=== PATIENT | female | born 1995 | race Caucasian/White ===

== ENCOUNTER → 2021-12-27 10:13 | Outpatient (CLI) | payer BC, SELFPAY ==
--- NOTE | ~2021-12-27 | US_ITS ---
EXAMINATION: US OB /maternal detail DATE: 12/27/2021 11:27 INDICATION: anatomic survey. TECHNIQUE: Real-time ultrasound of the pelvis was performed. COMPARISON: None. FINDINGS: There is a single living fetus in variable presentation. The placenta is posterior, 3.0 cm from the cervix. heart rate is 152 beats per minute (bpm). The amniotic fluid volume is subjectively nor mal. The following biometric data were obtained: Biparietal diameter (BPD): 3.9 cm; head circumference (HC): 14.3 cm; abdominal circumference (AC): 11 .8 cm; femur length (FL): 2.3 cm. These measurements are concordant. Estimated weight is 189 g +/- 28 g, which correlates with the 12th percentile when 05/30/22 is us ed as estimated date of delivery. As single measurements, these parameters are each equal to the following estimated gestational ages w ith ranges of +/- 2 standard deviations: BPD: 18 weeks 0 days (16 weeks 6 days - 19 weeks 1 days). HC: 17 weeks 4 days (16 weeks 3 days - 18 weeks 5 days). AC: 17 weeks 4 days (15 weeks 6 days - 19 weeks 1 days). FL: 17 weeks 0 days (15 weeks 4 days - 18 weeks 2 days). estimated gestational age based solely on measurements from this exam is 17 weeks 4 days +/- 1 weeks 2 days. The cerebral ventricles, cerebellum, cisterna magna, nuchal fold, lip, and visualized portions of the spine are normal. The heart is normal. The diaphragm, stomach, kidneys, and bladder are normal. Ther e are two umbilical arteries to yield a 3-vessel cord. The cord insertion is normal. IMPRESSION: 1. Single living fetus in variable presentation. 2. Estimated weight is 189 g +/- 28 g, which correlates with the 12th percentile when 05/30/22 i s used as estimated date of delivery. 3. Normal anatomic survey. Reviewed, dictated and finalized at location A. IMPRESSION: 1. Single living fetus in variable presentation. 2. Estimated weight is 189 g +/- 28 g, which correlates with the 12th pe rcentile when 05/30/22 is used as estimated date of delivery. 3. Normal anatomic survey.
== END ==
PROVIDERS: Visit Provider Obstetrics & Gynecology Gynecologic Oncology
DX: Z36.9 Encounter for antenatal screening, unspecified (principal)
CPT/HCPCS: 76805

== ENCOUNTER 2025-01-02 06:09 | Inpatient (IN) | payer BC, MEDICAID, SELFPAY ==
[2025-01-02] VITALS (119 sets, daily range): BP systolic 83–136; BP diastolic 34–89; PULSE 60–125; RESP 16; TEMP 36.4–36.9; O2SAT 81–100; BMI 27.0
--- OUTSIDE RECORDS SUMMARY | 2025-01-02 06:15 | XMS_ITS | Clinical Summary ---
Author Organization [facility] Address [address] [place] [address] Care Team Providers Care Flotation Operator Name Role Phone Antonella Cowart MD Primary Care Provider [phone] Allergies No known active allergies Medications vitamin 27-1 MG Tab tablet Take 1 tablet by mouth daily. Active cholecalciferol (VITAMIN D-3) 125 MCG (5000 UT) Tab Take 5,000 Units by mouth daily. Active ferrous sulfate EC 325 (65 Fe) MG tablet Take 1 tablet by mouth daily. Active Active Problems Problem Noted Date Diagnosed Date ([facility]) 05/24/2022 Gestational diabetes ([facility]) 05/24/2022 (spontaneous vaginal delivery) ([facility]) Resolved Problems Problem Noted Date Diagnosed Date Resolved Date Encounter for elective induc tion of labor ([facility]) 05/09/2019 05/10/2019 Diet controlled gestational diabetes mellitus (GDM) in third trimester ([facility]) 05/09/201905/10 39 weeks gestation of ([facility]) 05/09/2019 05/10/2019 Family History Medical History Relation Comments Hypertension Father Relation Status Comments Father Alive Mother Alive Sister 1 Alive Sister 2 Alive Sister 3 Alive Sister 4 Alive Son Alive Social History Tobacco Use Types Packs/Day Years Used Date Smoking Tobacco: Never Smokeless Tobacco: Never Alcohol Use Standard Drinks/Week Comments No 0 (1 standard drink = 0.6 oz pur e alcohol) AUDIT-C Answer Date Recorded Frequency of Alcohol Consumption Never 04/26/2019 Average Number of Drinks Not on file 019 Frequency of Binge Drinking Not on file 03/30 Comments No Sex and Gender Information Value Date Recorded Sex Assigned at Not on file Legal Sex Female 5:07 PM CDT Gender Identity Not on file Sexual Orientation Not on file Last Filed Vital Signs Vital Sign Reading Time Taken Comments Blood Pressure 112/68 05/26/2022 8:00 AM CDT Pulse 79 05/26/2022 8:00 AM CDT Temperature 36.7 C (98.1 F) 05/26/2022 8:00 AM CDT Respiratory Rate 16 05/26/2022 8:00 AM CDT Oxygen Saturation 98% 05/26/2022 8:00 AM CDT Inhaled Oxygen Concentration - - Weight 70.3 kg (155 lb) 05/13/2022 1:00 PM CDT Height 162.6 cm (5' 4 ) 05/13/2022 1:00 PM CDT Body Mass Index 26.61 05/13/2022 1:00 PM CDT Plan of Treatment Health Maintenance Due Date Last Done Comments Cervical Cancer Screening Pa p Smear (Age 30 to 64) Every 3 Years 1993 Annual Physical 1996 DTaP, Tdap and Td Vaccines ( 1 - Tdap) 2012 Hepatitis B Vaccines (1 of 3 - 19+ 3-dose series) 2012 Cervical Cancer Screening Pa p with HPV Testing (Age 30 to 64) Every 5 Years 2023 Cervical Cancer Screening wi th HPV 2023 COVID-19 Vaccine (3 - 2023-2 5 season) 2024 06/21/2021, 05/24/2021 Hepatitis C Completed 11/08/2021 HPV Vaccines Aged Out No longer eligi ble based on patient's age to complete this topic Meningococcal B Vaccine Aged Out No l onger eligible based on patient's age to complete this topic Meningococcal Vaccine Aged Out No suzy magno eligible based on patient's age to complete this topic Pneumococcal Vaccine: Pediatrics (0 to 5 Years) and At-Risk Patients (6 to 64 Years) Aged Out No longer eligible b ased on patient's age to complete this topic RSV Immunizations Under 20 Months Aged Out No longer eligible b ased on patient's age to complete this topic Procedures Procedure Name Priority Date/Time Associated Diagnosis Comments HEPATITIS C ANTIBODY Routine 11/08/2021 11:39 AM [employer] SAL[employer] ASSISTANT Unspecified screening (HHS/HCC) from Last 3 Months or Most Recently Relevant to Health Maintenance Results * HEPATITIS C ANTIBODY (11/08/2021 11:39 AM [employer] SAL[employer] ASSISTANT) HEPATITIS C AB NON-REACTI VE NON-REACTI VE 11/08/2021 8:10 PM [employer]OTHING SALES ASSISTANT [facility] 11/08/2021 11:3 9 AM [employer]OTH[employer] SALES ASSISTANT [facility] Final Result [facility] [address] [place] [address], from Last 3 Months or Most Recently Relevant to Health Maintenance Insurance [employer] * Full Code (Latest Code Status on File) Date Activated Date Inactivated Comments 05/24/2022 10:36 AM 05/26/2022 5:18 PM * Full Code Date Activated Date Inactivated Comments 05/13/2022 8:18 AM 05/13/2022 1:31 PM * Full Code Date Activated Date Inactivated Comments 05/02/2022 10:27 AM 05/02/2022 5:29 PM * Full Code Date Activated Date Inactivated Comments 05/09/2019 12:09 PM 05/09/2019 9:27 PM Care Teams Flotation Operator Relationship Specialty Start Date End Date Antonella Cowart MD PCP - General OBGYN 04/26/19
--- OUTSIDE RECORDS SUMMARY | 2025-01-02 06:15 | XMS_ITS | Data Portability ---
Author Organization [facility] Address [address] [place] [address] [place] [address] Assessment Encounter Date Assessment Date Assessment LastModified by Organization Details LastModified Time 12/12/2024 12/12/2024 Patient is ___weeks . Discussed plan. Not available 12/12/2024 11:19:12 12/26/2024 12/26/2024 Patient is ___weeks . Discussed plan. [email or web address] Not available 12/26/2024 11:43:37 Plan of Treatment Reminders Order Date Submit Date Provider Last Modified By Organization Details Last Modified Time Details Appointments INDUCTI ON 2024 06:30A Mick CASTILLO MD Not available Not available Not available NST 2024 09:30A M NST SCHEDULE Not available Not available Not available U/S OB BPP 2024 10:00A M ULTRASOUND Not available Not available Not available OB ROUTINE 2024 10:30A Mick CASTILLO MD Not available Not available Not available NST 2024 11:00A M NST SCHEDULE Not available Not available Not available U/S OB BPP 2024 11:30A M ULTRASOUND Not available Not available Not available OB ROUTINE 2024 11:45A Mick CASTILLO MD Not available Not available Not available Lab None recorde d. Referral None recorde d. Procedures None recorde d. Surgeries None recorde d. Imaging non-str ess test 2024 025 [email or web address], [address], [place], [address], 12/30/2024 14:11:19 US, obstetr ic, follow- up 2024 025 [address], [address], [place], [address], 12/26/2024 18:12:26 US, obstetr ic, biophys ical profile + non-str ess test 2024 025 [address], [address], [place], [address], 12/26/2024 18:12:26 non-str ess test 2024 025 [email or web address] [address], [address], [place], [address], 12/27/2024 09:04:13 Medication Orders None recorde d. Patient TargetsNo targets recorded. Patient InstructionsNo instructions recorded. Reason for Referral None Reported. Results Created Date Observation Date Name Description Value Unit Range Abnormal Flag Note LastModifiedBy Organization Detail LastModifiedTime 11/14/1911/14/2024 CMP(C OMPRE HENSI VE METAB OLIC PANEL ) sodium 136 mmol/ L 133-14 6 Not Available [facility] (Lab) [address] [place], [address], 11/15/2024 19:07:52 11/14/1911/14/2024 CMP(C OMPRE HENSI VE METAB OLIC PANEL ) potassium 3.5 mmol/ L 3.5-5. 1 Not Available [facility] (Lab) [address] [place], [address], 11/15/2024 19:07:52 11/14/1911/14/2024 CMP(C OMPRE HENSI VE METAB OLIC PANEL ) chloride 105 mmol/ L 98-107 Not Available [facility] (Lab) [address], [place], [address], 11/15/2024 19:07:52 11/14/19 25 11/14/2024 CMP(C OMPRE HENSI VE METAB OLIC PANEL ) carbon dioxide 23 mmol/ L 21-31 Not Available [facility] (Lab) [address] [facility], [place], [address], 11/15/2024 19:07:52 11/14/19 25 11/14/2024 CMP(C OMPRE HENSI VE METAB OLIC PANEL ) anion gap 8 mmol/ L 4-13 Not Available [facility] (Lab) [address] [facility], [place], [address], 11/15/2024 19:07:52 11/14/19 25 11/14/2024 CMP(C OMPRE HENSI VE METAB OLIC PANEL ) blood urea nitrogen 16 mg/dL 7-25 Not Available [facility] (Lab) [address] [facility], [place], [address], 11/15/2024 19:07:52 11/14/19 25 11/14/2024 CMP(C OMPRE HENSI VE METAB OLIC PANEL ) creatinine 0.51 mg/dL 0.60-1 .30 low Not Available [facility] (Lab) [address] [facility], [place], [address], 11/15/2024 19:07:52 11/14/1911/14/2024 CMP(C OMPRE HENSI VE METAB OLIC PANEL ) egfrcr (CKD-epi 2020) >90 mL/mi n/1.7 3_m2 >=60 Not Available [facility] (Lab) [address] [facility], [place], [address], 11/15/2024 19:07:52 11/14/19 25 11/14/2024 CMP(C OMPRE HENSI VE METAB OLIC PANEL ) calcium 8.4 mg/dL 8.3-10 .5 Not Available [facility] (Lab) [address] [facility], [place], [address], 11/15/2024 19:07:52 11/14/19 25 11/14/2024 CMP(C OMPRE HENSI VE METAB OLIC PANEL ) glucose 113 mg/dL 70-100 high Not Available [facility] (Lab) [address] [facility], [place], [address], 11/15/2024 19:07:52 11/14/19 25 11/14/2024 CMP(C OMPRE HENSI VE METAB OLIC PANEL ) protein, total 5.4 g/dL 6.4-8. 3 low Not Available [facility] (Lab) [address] [facility], [place], [address], 11/15/2024 19:07:52 11/14/19 25 11/14/2024 CMP(C OMPRE HENSI VE METAB OLIC PANEL ) albumin 3.4 g/dL 3.5-5. 0 low Not Available [facility] (Lab) [address] [facility], [place], [address], 11/15/2024 19:07:52 11/14/19 25 11/14/2024 CMP(C OMPRE HENSI VE METAB OLIC PANEL ) ALT 14 units /L 9-43 Not Available [facility] (Lab) [address] [facility], [place], [address], 11/15/2024 19:07:52 11/14/19 25 11/14/2024 CMP(C OMPRE HENSI VE METAB OLIC PANEL ) alkaline phosphatase 72 units /L 34-104 Not Available [facility] (Lab) [address] [facility], [place], [address], 11/15/2024 19:07:52 11/14/19 25 11/14/2024 CMP(C OMPRE HENSI VE METAB OLIC PANEL ) AST 18 units /L 13-39 Not Available [facility] (Lab) [address] [facility], [place], [address], 11/15/2024 19:07:52 11/14/19 25 11/14/2024 CMP(C OMPRE HENSI VE METAB OLIC PANEL ) bilirubin, total 0.4 mg/dL 0.2-1. 2 Not Available [facility] (Lab) [address] [facility], [place], [address], 11/15/2024 19:07:52 11/14/19 25 11/14/2024 BILE ACIDS , TOTAL bile acids, total 8 umol/ L 0-10 Test Perfo rmed by: [facility] [address] [address] Not Available [facility] (Lab) [address] [facility], [place], [address], 11/15/2024 19:07:52 11/29/19 25 11/28/2024 CMP(C OMPRE HENSI VE METAB OLIC PANEL ) sodium 137 mmol/ L 133-14 6 Not Available [facility] (Lab) [address] [place], [address], 11/29/2024 12:53:06 11/29/19 25 11/28/2024 CMP(C OMPRE HENSI VE METAB OLIC PANEL ) potassium 3.2 mmol/ L 3.5-5. 1 low Not Available [facility] (Lab) [address] [place], [address], 11/29/2024 12:53:06 11/29/19 25 11/28/2024 CMP(C OMPRE HENSI VE METAB OLIC PANEL ) chloride 103 mmol/ L 98-107 Not Available [facility] (Lab) [address] [place], [address], 11/29/2024 12:53:06 11/29/19 25 11/28/2024 CMP(C OMPRE HENSI VE METAB OLIC PANEL ) carbon dioxide 24 mmol/ L 21-31 Not Available [facility] (Lab) [address] [place], [address], 11/29/2024 12:53:06 11/29/19 25 11/28/2024 CMP(C OMPRE HENSI VE METAB OLIC PANEL ) anion gap 10 mmol/ L 4-13 Not Available [facility] (Lab) [address] [facility], [place], [address], 11/29/2024 12:53:06 11/29/19 25 11/28/2024 CMP(C OMPRE HENSI VE METAB OLIC PANEL ) blood urea nitrogen 8 mg/dL 7-25 Not Available [facility] (Lab) [address] [facility], [place], [address], 11/29/2024 12:53:06 11/29/19 25 11/28/2024 CMP(C OMPRE HENSI VE METAB OLIC PANEL ) creatinine 0.50 mg/dL 0.60-1 .30 low Not Available [facility] (Lab) [address] [facility], [place], [address], 11/29/2024 12:53:06 11/29/19 25 11/28/2024 CMP(C OMPRE HENSI VE METAB OLIC PANEL ) egfrcr (CKD-epi 2020) >90 mL/mi n/1.7 3_m2 >=60 Not Available [facility] (Lab) [address] [facility], [place], [address], 11/29/2024 12:53:06 11/29/19 25 11/28/2024 CMP(C OMPRE HENSI VE METAB OLIC PANEL ) calcium 7.9 mg/dL 8.3-10 .5 low Not Available [facility] (Lab) [address] [facility], [place], [address], 11/29/2024 12:53:06 11/29/19 25 11/28/2024 CMP(C OMPRE HENSI VE METAB OLIC PANEL ) glucose 110 mg/dL 70-100 high Not Available [facility] (Lab) [address] [facility], [place], [address], 11/29/2024 12:53:06 11/29/19 25 11/28/2024 CMP(C OMPRE HENSI VE METAB OLIC PANEL ) protein, total 5.8 g/dL 6.4-8. 3 low Not Available [facility] (Lab) [address] [facility], [place], [address], 11/29/2024 12:53:06 11/29/19 25 11/28/2024 CMP(C OMPRE HENSI VE METAB OLIC PANEL ) albumin 3.6 g/dL 3.5-5. 0 Not Available [facility] (Lab) [address] [facility], [place], [address], 11/29/2024 12:53:06 11/29/19 25 11/28/2024 CMP(C OMPRE HENSI VE METAB OLIC PANEL ) ALT 26 units /L 9-43 Not Available [facility] (Lab) [address] [facility], [place], [address], 11/29/2024 12:53:06 11/29/19 25 11/28/2024 CMP(C OMPRE HENSI VE METAB OLIC PANEL ) alkaline phosphatase 97 units /L 34-104 Not Available [facility] (Lab) [address] [facility], [place], [address], 11/29/2024 12:53:06 11/29/19 25 11/28/2024 CMP(C OMPRE HENSI VE METAB OLIC PANEL ) AST 31 units /L 13-39 Not Available [facility] (Lab) [address] [place], [address], 11/29/2024 12:53:06 11/29/19 25 11/28/2024 CMP(C OMPRE HENSI VE METAB OLIC PANEL ) bilirubin, total 0.4 mg/dL 0.2-1. 2 Not Available [facility] (Lab) [address] [place], [address], 11/29/2024 12:53:06 11/29/19 25 11/28/2024 BILE ACIDS , TOTAL bile acids, total 7 umol/ L 0-10 Test Perfo rmed by: [facility] [address] [address] Not Available [facility] (Lab) [address] [facility], [place], [address], 11/29/2024 12:53:07 12/13/19 25 12/12/2024 CMP(C OMPRE HENSI VE METAB OLIC PANEL ) sodium 135 mmol/ L 133-14 6 Not Available [facility] (Lab) [address] [facility], [place], [address], 12/13/2024 10:57:47 12/13/19 25 12/12/2024 CMP(C OMPRE HENSI VE METAB OLIC PANEL ) potassium 3.6 mmol/ L 3.5-5. 1 Not Available [facility] (Lab) [address] [facility], [place], [address], 12/13/2024 10:57:47 12/13/19 25 12/12/2024 CMP(C OMPRE HENSI VE METAB OLIC PANEL ) chloride 102 mmol/ L 98-107 Not Available [facility] (Lab) [address] [facility], [place], [address], 12/13/2024 10:57:47 12/13/19 25 12/12/2024 CMP(C OMPRE HENSI VE METAB OLIC PANEL ) carbon dioxide 24 mmol/ L 21-31 Not Available [facility] (Lab) [address] [place], [address], 12/13/2024 10:57:47 12/13/19 25 12/12/2024 CMP(C OMPRE HENSI VE METAB OLIC PANEL ) anion gap 9 mmol/ L 4-13 Not Available [facility] (Lab) [address] [facility], [place], [address], 12/13/2024 10:57:47 12/13/19 25 12/12/2024 CMP(C OMPRE HENSI VE METAB OLIC PANEL ) blood urea nitrogen 10 mg/dL 7-25 Not Available [facility] (Lab) [address], [place], [address], 12/13/2024 10:57:47 12/13/19 25 12/12/2024 CMP(C OMPRE HENSI VE METAB OLIC PANEL ) creatinine 0.46 mg/dL 0.60-1 .30 low Not Available [facility] (Lab) [address] [facility], [place], [address], 12/13/2024 10:57:47 12/13/19 25 12/12/2024 CMP(C OMPRE HENSI VE METAB OLIC PANEL ) egfrcr (CKD-epi 2020) >90 mL/mi n/1.7 3_m2 >=60 Not Available [facility] (Lab) [address] [facility], [place], [address], 12/13/2024 10:57:47 12/13/19 25 12/12/2024 CMP(C OMPRE HENSI VE METAB OLIC PANEL ) calcium 8.5 mg/dL 8.3-10 .5 Not Available [facility] (Lab) [address] [facility], [place], [address], 12/13/2024 10:57:47 12/13/19 25 12/12/2024 CMP(C OMPRE HENSI VE METAB OLIC PANEL ) glucose 104 mg/dL 70-100 high Not Available [facility] (Lab) [address] [facility], [place], [address], 12/13/2024 10:57:47 12/13/19 25 12/12/2024 CMP(C OMPRE HENSI VE METAB OLIC PANEL ) protein, total 5.8 g/dL 6.4-8. 3 low Not Available [facility] (Lab) [address] [facility], [place], [address], 12/13/2024 10:57:47 12/13/19 25 12/12/2024 CMP(C OMPRE HENSI VE METAB OLIC PANEL ) albumin 3.6 g/dL 3.5-5. 0 Not Available [facility] (Lab) [address] [facility], [place], [address], 12/13/2024 10:57:47 12/13/19 25 12/12/2024 CMP(C OMPRE HENSI VE METAB OLIC PANEL ) ALT 30 units /L 9-43 Not Available [facility] (Lab) [address] [facility], [place], [address], 12/13/2024 10:57:47 12/13/19 25 12/12/2024 CMP(C OMPRE HENSI VE METAB OLIC PANEL ) alkaline phosphatase 105 units /L 34-104 high Not Available [facility] (Lab) [address] [facility], [place], [address], 12/13/2024 10:57:47 12/13/19 25 12/12/2024 CMP(C OMPRE HENSI VE METAB OLIC PANEL ) AST 28 units /L 13-39 Not Available [facility] (Lab) [address] [facility], [place], [address], 12/13/2024 10:57:47 12/13/19 25 12/12/2024 CMP(C OMPRE HENSI VE METAB OLIC PANEL ) bilirubin, total 0.5 mg/dL 0.2-1. 2 Not Available [facility] (Lab) [address] [facility], [place], [address], 12/13/2024 10:57:47 12/13/19 25 12/12/2024 BILE ACIDS , TOTAL bile acids, total 8 umol/ L 0-10 Test Perfo rmed by: [facility] [address] [address] Not Available [facility] (Lab) [address] [facility], [place], [address], 12/13/2024 10:57:48 12/27/19 25 12/26/2024 CMP(C OMPRE HENSI VE METAB OLIC PANEL ) sodium 136 mmol/ L 133-14 6 Not Available [facility] (Lab) [address] [facility], [place], [address], 12/27/2024 10:30:27 12/27/19 25 12/26/2024 CMP(C OMPRE HENSI VE METAB OLIC PANEL ) potassium 3.7 mmol/ L 3.5-5. 1 Not Available [facility] (Lab) [address] [facility], [place], [address], 12/27/2024 10:30:27 12/27/19 25 12/26/2024 CMP(C OMPRE HENSI VE METAB OLIC PANEL ) chloride 102 mmol/ L 98-107 Not Available [facility] (Lab) [address] [facility], [place], [address], 12/27/2024 10:30:27 12/27/19 25 12/26/2024 CMP(C OMPRE HENSI VE METAB OLIC PANEL ) carbon dioxide 25 mmol/ L 21-31 Not Available [facility] (Lab) [address] [facility], [place], [address], 12/27/2024 10:30:27 12/27/19 25 12/26/2024 CMP(C OMPRE HENSI VE METAB OLIC PANEL ) anion gap 9 mmol/ L 4-13 Not Available [facility] (Lab) [address] [facility], [place], [address], 12/27/2024 10:30:27 12/27/19 25 12/26/2024 CMP(C OMPRE HENSI VE METAB OLIC PANEL ) blood urea nitrogen 11 mg/dL 7-25 Not Available [facility] (Lab) [address] [facility], [place], [address], 12/27/2024 10:30:27 12/27/19 25 12/26/2024 CMP(C OMPRE HENSI VE METAB OLIC PANEL ) creatinine 0.45 mg/dL 0.60-1 .30 low Not Available [facility] (Lab) [address] [place], [address], 12/27/2024 10:30:27 12/27/19 25 12/26/2024 CMP(C OMPRE HENSI VE METAB OLIC PANEL ) egfrcr (CKD-epi 2020) >90 mL/mi n/1.7 3_m2 >=60 Not Available [facility] (Lab) [address], [place], [address], 12/27/2024 10:30:27 12/27/19 25 12/26/2024 CMP(C OMPRE HENSI VE METAB OLIC PANEL ) calcium 8.6 mg/dL 8.3-10 .5 Not Available [facility] (Lab) [address], [place], [address], 12/27/2024 10:30:27 12/27/19 25 12/26/2024 CMP(C OMPRE HENSI VE METAB OLIC PANEL ) glucose 102 mg/dL 70-100 high Not Available [facility] (Lab) [address], [place], [address], 12/27/2024 10:30:27 12/27/19 25 12/26/2024 CMP(C OMPRE HENSI VE METAB OLIC PANEL ) protein, total 5.8 g/dL 6.4-8. 3 low Not Available [facility] (Lab) [address], [place], [address], 12/27/2024 10:30:27 12/27/19 25 12/26/2024 CMP(C OMPRE HENSI VE METAB OLIC PANEL ) albumin 3.5 g/dL 3.5-5. 0 Not Available [facility] (Lab) [address], [place], [address], 12/27/2024 10:30:27 12/27/19 25 12/26/2024 CMP(C OMPRE HENSI VE METAB OLIC PANEL ) ALT 23 units /L 9-43 Not Available [facility] (Lab) [address], [place], [address], 12/27/2024 10:30:27 12/27/19 25 12/26/2024 CMP(C OMPRE HENSI VE METAB OLIC PANEL ) alkaline phosphatase 119 units /L 34-104 high Not Available [facility] (Lab) [address] [facility], [place], [address], 12/27/2024 10:30:27 12/27/19 25 12/26/2024 CMP(C OMPRE HENSI VE METAB OLIC PANEL ) AST 29 units /L 13-39 Not Available [facility] (Lab) [address] [facility], [place], [address], 12/27/2024 10:30:27 12/27/19 25 12/26/2024 CMP(C OMPRE HENSI VE METAB OLIC PANEL ) bilirubin, total 0.5 mg/dL 0.2-1. 2 Not Available [facility] (Lab) [address] [facility], [place], [address], 12/27/2024 10:30:27 12/27/19 25 12/26/2024 BILE ACIDS , TOTAL bile acids, total 10 umol/ L 0-10 Test Perfo rmed by: [facility] [address] [address] Not Available [facility] (Lab) [address] [facility], [place], [address], 12/27/2024 10:30:28 12/27/19 25 12/26/2024 CULTU RE: GROUP B STREP SCREE N, REFLE X SUSCE PTIBI LITY result report SEE RESULT S BELOW Test: Cultu re: Group B Strep , Refle x Susce ptibi lity ([facility] ) Speci men Sourc e: Vagin a/Rec macey Speci men Type: Vagin al/Re ctal Speci men Date: 2024 1140 Resul t Date: 025 1253 Resul t Statu s: Final resul t Abnor mal: No Resul ting Lab: [facility] [address] [facility] [address] Tel: CULTU RE ----- ----- ----- --- No Group B strep isola eli at 2 days (eric ctive broth enhan cemen t) Not Available [facility] (Lab) [address] [facility], [place], [address], 12/29/2024 13:56:54 11/29/19 25 11/28/2024 US, obste tric, follo w-up No observ ation record ed. [email or web address], [place], [address], 11/28/2024 17:20:45 11/29/19 25 11/28/2024 US, obste tric, follo w-up No observ ation record ed. [email or web address] [address] [facility], [place], [address], 11/28/2024 21:56:46 12/23/19 25 12/22/2024 US, obste tric, 2nd or 3rd trime ster No observ ation record ed. [email or web address] [address], [place], [address], 12/24/2024 22:47:50 12/27/19 25 12/26/2024 US, obste tric, follo w-up No observ ation record ed. [email or web address] [address], [place], [address], 12/26/2024 15:58:43 12/27/19 25 12/26/2024 US, sharmin ken, bioph ysica l profi le + non-s tress test No observ ation record ed. [email or web address] [address], [place], [address], 12/26/2024 15:58:54 12/27/19 25 12/26/2024 US, obste tric, follo w-up No observ ation record ed. [address], [place], [address], 12/29/2024 17:32:13 12/27/19 25 12/26/2024 non-s tress test No observ ation record ed. [email or web address] [address], [place], [address], 12/26/2024 15:41:46 12/30/19 25 12/26/2024 non-s tress test No observ ation record ed. [email or web address] [address], [place], [address], 12/29/2024 10:23:11 12/31/19 25 12/30/2024 non-s tress test No observ ation record ed. [email or web address] [address], [place], [address], 12/30/2024 14:06:33 Result Notes None recorded. 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 4 12:49:11 Past history of gestation al diabetes mellitus 937997144 Active [address] [facility] 4 12:49:33 57039455 Active 2023 Brissa Dugan null, [facility] 4 11:08:32 Maternal history of gestation al diabetes 985301257 Active Nahun Castillo MD [address], [place], [address], [place] [facility] 4 11:28:36 Placenta circumval eben 0911119 Active 32wk growth us Junie bangura, [facility] 4 18:22:42 Blood glucose outside reference range 684415571 Active decline 3hr gtt h/o GDM checking bs Junie Lau [facility], [facility] 5 11:35:10 Blood glucose outside reference range 830383278 Active decline 3hr gtt h/o GDM checking Junie Lau [facility], [facility] 5 11:35:10 Cholestas is of 836172424 Active 2024 ursodiol 300mg BID, testing , 37wk delivery Junie bangura [facility] 5 16:17:53 Cholestas is of 678545400 Active 2024 ursodiol 300mg BID, testing , 37wk delivery Junie bangura [facility] 5 16:17:53 Notes:Encounter for antenata l screening of mother Recorded Elsewhere: No Location: [facility] Source: EHR Chronic: N Practice ID: [id number] Billable Time: 03:45:00 PM Encounter for screening of mother Practice ID: [id number] Problem Notes None recorded. Procedures Surgical History Date Name Laterality Status Provider Name and Address Organization Details Recorded Time 4 Date of Last Pap Smear completed Aydee Levi [facility] 06/13/2024 12:53:01 7 Colposcopy completed Aydee Levi [facility] 06/13/2024 12:53:38 7 Colposcopy completed Aydee Levi [facility] 06/13/2024 13:03:47 9 extraction of wisdom tooth completed Aydee Levi [facility] 06/13/2024 13:04:13 Imaging Results Imaging Date Name Status LastModified by Organiz ation Details LastModified Time 11/28/2024 US, obstetric, follow-up [email or web address] [address], [place], [address], 11/28/2024 17:20:45 11/28/2024 US, obstetric, follow-up completed [email or web address] [address], [place], [address], 11/28/2024 21:56:46 12/22/2024 US, obstetric, 2nd or 3rd trimester completed [email or web address] [address], [place], [address], 12/24/2024 22:47:50 12/26/2024 US, obstetric, follow-up completed [email or web address] [address], [place], [address], 12/26/2024 15:58:43 12/26/2024 US, obstetric, biophysical profile + non-stress test completed [email or web address] [address] [address], [place], [address], 12/26/2024 15:58:54 12/26/2024 US, obstetric, follow-up completed [email or web address] [address], [place], [address], 12/29/2024 17:32:13 12/26/2024 non-stress test completed [email or web address] [place] [address], [place], [address], 12/26/2024 15:41:46 12/26/2024 non-stress test completed [email or web address] [place] [address], [place], [address], 12/29/2024 10:23:11 12/30/2024 non-stress test completed [place] [address], [place], [address], 12/30/2024 14:06:33 Procedure Notes None recorded. Medical Equipment None Reported. Allergies No known drug allergies Medications Name Sig Start Date Stop Date Status Note LastModified by Organization Details LastModified Time ursodiol 300 mg capsule TAKE 1 CAPSULE BY MOUTH TWICE A DAY active Not Available Not Available No t Available Vitamin D2 1,250 mcg (50,000 unit) capsule take 1 capsule by oral route every week 04/18 completed Prescrib ed Elsewher e: No Locat ion: Alanna sainz [facility] odify By: omaira Encounte r DateTime : 11/08/19 16 02:42:36 PM Not Available Not Available Not Available magnesium 30 mg tablet 06/12 completed Prescrib ed Elsewher e: Yes Loca tion: Alanna sainz [facility] odify By: omaira Snowte r DateTime : 09/25/20 15 03:45:00 PM Not Available Not Available Not Available active Not Available Not Avai lable Not Available Heladio-Dirk uo DHA 29 mg-1 mg-400 mg oral pack take 2 by Oral route once for 30 days 10/24 completed Prescrib ed Elsewher e: No Locat ion: Alanna sainz [facility] odify By: megha mills DateTime : 09/25/20 15 03:45:00 PM Not Available Not Available Not Available Vitamin B-12 1,000 mcg/mL oral drops 06/12 completed Prescrib ed Elsewher e: Yes Loca tion: Alanna sainz [facility] odify By: omaira Encounte r DateTime : 09/25/20 15 03:45:00 PM Not Available Not Available Not Available Fioricet 50 mg-300 mg-40 mg capsule Take 1 capsule every 4 hours by oral route. 12/26 completed Not Available Not Available Not Available Vitals Date Recorded Body weight Systolic blood pressure Diastolic blood pressure Provider Name and Address Organization Details Last Updated DateTime 12/12/2024 66780.0402 4 g 128 mm[Hg] 79 mm[Hg] Brissa Ritchie [facility] 12/12/2024 11:19:57 Date Recorded Body height Body mass index (BMI) Body weight Body height Body mass index (BMI) Body weight Systolic blood pressure Diastolic blood pressure Systolic blood pressure Diastolic blood pressure Provider Name and Address Organization Details Last Updated DateTime 165.1 cm 26.1 kg/m2 22298 g 165.1 cm 26.1 kg/m2 12284 g 117 mm[Hg] 69 mm[Hg] 117 mm[Hg] 69 mm[Hg] Aydee Levi [facility] 15:40:18 Date Recorded Body height Body mass index (BMI) Body weight Systolic blood pressure Diastolic blood pressure Provider Name and Address Organization Details Last Updated DateTime 12/30/2024 165.1 cm 26.2 kg/m2 12469.72 g 114 mm[Hg] 67 mm[Hg] JC Davila [facility] 13:04:20 Social History Question Answer Notes LastModified by Organizat ion Details LastModified Time Tobacco Smoking Status Former Smoker Aydee Levi [facility], [facility] 06/13/2024 13:02:46 What Is Your Level Of Alcohol Consumption? None [email or web address] Information not available 06/13/2024 If You Are , What Was Your Level Of Alcohol Consumption Prior To ? Occasional [email or web address] Information not available 06/13/2024 Are You Blind Or Do You Have Difficulty Seeing? No [email or web address] Information not available 06/13/2024 What Is Your Level Of Caffeine Consumption? Moderate [email or web address] Information not available 06/13/2024 How Much Tobacco Do You Chew? None Information not available 08/08/2024 In The 14 Days Before Symptom Onset, Have You Had Close Contact With A Laboratory-confir med COVID-19 While That Case Was Ill? No [email or web address] Information not available 06/13/2024 In The 14 Days Before Symptom Onset, Have You Had Close Contact With A Person Who Is Under Investigation For COVID-19 While That Person Was Ill? No [email or web address] Information not available 06/13/2024 Have You Been To An Area Known To Be High Risk For COVID-19? No [email or web address] Information not available 06/13/2024 Are You Deaf Or Do You Have Serious Difficulty Hearing? No [email or web address] Information not available 06/13/2024 What Is The Highest Grade Or Level Of School You Have Completed Or The Highest Degree You Have Received? [id number] Information not available 08/08/2024 Do You Use Your Seat Belt Or Car Seat Routinely? Yes Information not available 06/13/2024 Do You Have Smoke And Carbon Monoxide Detectors In Your Home? Yes [email or web address] Information not available 06/13/2024 How Much Tobacco Do You Smoke? No Information not available 08/08/2024 Do You Feel Stressed (tense, Restless, Nervous, Or Anxious, Or Unable To Sleep At Night)? [id number] [email or web address] Information not available 06/13/2024 Do You Use Any Illicit Or Recreational Drugs? No [email or web address] Information not available 06/13/2024 Do You Use Sunscreen Routinely? Yes [email or web address] Information not available 06/13/2024 Has Tobacco Cessation Counseling Been Provided? No Information not available 06/13/2024 Have You Used IV Drugs? No Information not available 08/08/2024 Do You Or Have You Ever Used Any Other Forms Of Tobacco Or Nicotine? No [email or web address] Information not available 06/13/2024 Sex: Unknown Functional Status Question Answer Note LastModified by Organizat ion Details LastModified Time Do you have difficulty walking or climbing stairs? No [email or web address] Information not available 06/13/2024 Are you able to walk? YESWOREST [email or web address] Information not available 06/13/2024 Are you able to care for yourself? Yes [email or web address] Information not available 06/13/2024 Do you have difficulty dressing or bathing? No [email or web address] Information not available 06/13/2024 What is your exercise level? Occasional [email or web address] Information not available 06/13/2024 Mental Status None recorded. Family History Relationship Description Onset Age of this Age Resolved Age Notes LastModified by Organization Details LastModified Time Maternal Grandmother Malignant tumor of lung [email or web address] Not available 06/13 12:59:32 Maternal Grandmother Hypertensive disorder [email or web address] Not available 06/13 12:59:50 Mother Anemia [email or web address] Not available 06/13/2024 13:00:06 Sister Anemia Not available 06/13/2024 13:00:16 Paternal Aunt Malignant tumor of breast [email or web address] Not available 06/13 13:00:38 Notes:Maternal grandmother: Cancer, lung, Hypertension Mother: Anemia Paternal aunt: breast Sister: Anemia, Asthma Medical History Condition Response Allergies (Food, seasonal, environmental ) N Other Y Blood Transfusion N Drug/Latex Allergies/Reactions N Breast Cancer N Dermatologic Disorders N Lung Disease N Defects or Inherited Disease N Breast Problem N Gestational Diabetes Y Hematologic disorders Y Anesthesia Complications N History of STI N Deep Vein Thrombosis N Polycystic ovary syndrome N Anxiety Disorder N Autoimmune disease N Arthritis N Infertility N Polyps N Acid Reflux (GERD) N History of abnormal pap Y Cancer N Stroke N Varicosities N Neurologic/Epilepsy N Endometriosis N High Cholesterol N Headaches N Fibromyalgia N Kidney Disease N Heart Problems N Kidney or Bladder Problems N Thyroid Problems N GI Problems N Eating Disorder N Anemia N Art (IVF or FET) N Psychiatric Illness N Ovarian Cancer N Diabetes Y Pulmonary (TB, Asthma) N Hepatitis/Liver Disease N No Past Medical History N Eczema N Urinary Tract Infection N Abuse/Domestic Violence N Asthma N Trauma/Violence N Depression/ depression N Heart Disease N Pre-Eclampsia N Hypertension N Osteoporosis N Thrombophilias N Gynecological History Statement/Question Response Abnormal Pap Y Date of Last Mammogram Date of LMP 04/08/2024 STIs/STDs N HPV Vaccine Y Colposcopy 12/15/2016 Current Control Method Date of Last Colonoscopy Sexually Active? Y Menses Monthly N Date of DEXA bone scan Date of Last Pap Smear 06/13/2024 Sexual Problems? N LMP Approximate Obstetrics History GPAL:G 5 P 3 0 1 3 Type Value Full Term 3 Spontaneous 1 Living 3 Total 5 Past Encounters Encounter ID Performer Location Encounter Start Date Encounter Closed Date Diagnosis/Indication Diagnosis SNOMED-CT Code Diagnosis ICD10 Code Diagnosis Note [id number] [facility] [address],[place] [address] 06/13/2024 11:42:21 06/13/2024 12:41:50 Gestation period, 8 weeks 13806850 O26.841 Z3A.08 [id number] Daisy Roy [facility] [address],[place] [address] 06/13/2024 11:54:24 06/13/2024 13:14:19 Amenorrhea 06057318 N91.2 [id number] [facility] [address],[place] [address] 07/11/2024 10:18:24 07/11/2024 10:56:23 screening 493624742 Z36.82 Z3A.12 [id number] Nahun Castillo MD [facility] [address],[place] [address] 07/11/2024 10:18:55 07/11/2024 12:00:01 Routine care 677042901 Z34.90 [id number] Nahun Castillo MD [facility] [address],[place] [address] 08/08/2024 10:58:15 08/08/2024 11:33:16 Routine care 453279740 Z34.90 [id number] [facility] [address],[place] [address] 09/05/2024 09:56:39 09/05/2024 11:01:30 screening for malformation 791822412 Z36.3 Z3A.20 [id number] Nahun Castillo MD [place] [address],[place] [address] 09/05/2024 10:56:26 09/05/2024 11:46:18 Routine care 334583868 Z34.90 [id number] Nahun Castillo MD [place] [address],[place] [address] 10/10/2024 12:23:21 10/10/2024 13:13:02 Routine care 476503920 Z34.90 [id number] Nahun Castillo MD [place] [address],[place] [address] 10/31/2024 10:12:56 10/31/2024 11:34:59 Cholestasis of 728903033 O26.643 Headache 95489846 R51.9 [id number] Nahun Castillo MD [place] [address],[place] [address] 11/14/2024 12:28:14 11/14/2024 13:39:10 Routine care 357686890 Z34.90 [id number] [facility] [address],[place] [address] 11/28/2024 12:02:00 11/28/2024 12:45:24 Placenta circumvallata 0684226 O43.113 Z3A.32 [id number] ELADIA RAINEY MD [facility] [address],[place] [address] 11/28/2024 12:03:21 11/28/2024 13:05:09 Gestational diabetes mellitus class A1 31198938 O24.410 - well controlled on diet Placenta circumvallata 4525771 O43.119 - growth US 40% at 32 weeks Gestation period, 32 weeks 4251868 Z3A.32 - continue PNV- discussed preadmissi on Irregular uterine contractions 14707282 O62.2 - resolved- SVE closed [id number] Nahun Castillo MD [facility] [address],[place] [address] 12/12/2024 10:57:25 12/12/2024 13:38:24 Routine care 120804209 Z34.90 [id number] Nahun Castillo MD [facility] [address],[place] [address] 12/26/2024 10:46:35 12/26/2024 11:58:44 Routine care 577296454 Z34.90 [id number] Susannah Guzman [facility] [address],[place] [address] 12/26/2024 12:14:33 12/26/2024 13:38:13 Cholestasis of 579326321 O26.643 Z3A.36 [id number] Aydee Levi [facility] [address],[place] [address] 12/26/2024 15:39:05 12/26/2024 15:42:49 Cholestasis of 692324567 O26.613 [id number] JC Davila [facility] [address],[place] [address] 12/30/2024 12:08:34 12/30/2024 14:11:19 Cholestasis of 597418110 O26.613 Health Concerns Section Related Observation LastModified by Organization Detai ls LastModified Time None Recorded Concern Status LastModified by Organization Details LastModified Time None Recorded Advance Directives Directive None Recorded Payers Encounter Date Sequence Insurance Name Policy Number Policy Villa Covered Member ID Villa Member ID Guarantor Name 12/12/2024 2 [place] [facility] Kreke [id number] [facility] 12/12/2024 1 [place] [id number] Alfa Bright [id number] [facility] 12/26/2024 2 [place] [facility] AID Hanna Kreke [id number] [facility] 12/26/2024 1 [place] [id number] Alfa Bright [id number] 12/26/2024 2 [place] [facility] PUBLIC AID Hanna Kreke [id number] Hanna Kre 12/26/2024 1 [place] [id number] Alfa Bright [id number] Hanna Bright 12/26/2024 2 [place] [facility] AID Hanna Bright [id number] Hanna Bright 12/26/2024 1 [place] [id number] Alfa Bright [id number] Hanna Bright 12/30/2024 2 [place] [facility] AID Hanna Bright [id number] Hanna Bright 12/30/2024 1 [place] [id number] Alfa Bright [id number] Hanna Bright OBGyn Episode Ob Episode Information Episode Created Date Number of Fetuses Patient Bloodtype Patient rh Status Prepregnancy Weight lbs Domestic Partner Domestic Partner Phone Father Name Chipper Operator Status 06/13/20 24 1 CLOSED Fetus Data First Name Last Name Admitted to NICU Weight (g) Sex Living Outcome Pediatric Complications Fetus ID Race Codes Race Delivery Type 4082.32 8 M Full Term [id number] Vaginal Delivery Nilay Calculation Initial Nilay Date Initial Exam Date Initial Exam Provider Initial Ultrasound Date Last Menstrual Period Date Ultra Sound Weeks Gestation 0 Eighteen To Twenty Week Nilay Update Ultra Sound Date Fundal Height At Umbil Quickening Date Ultra Sound Latest Weeks Gestation Final Nilay Confirmed By Final Nilay Confirmed Date Final Nilay Date Ultra Sound Latest Days Gestation 0 0 Menstrual History Last Menstrual Date Menses Monthly On Bcp Conception Prior Menses Frequency Hcg Plus Date Menarche Onset Age Delivery Information Delivery Date Delivery Type Labor Anesthesia Weeks Gestation Incision Type Labor Labor Length Hrs Delivered By Post Complications Tubal Sterilization Discharge Date Comments 9 Discharge Information Feeding Method Contraceptive Method Maternal HG B and HCT Levels Ob Episode Information Episode Created Date Number of Fetuses Patient Bloodtype Patient rh Status Prepregnancy Weight lbs Domestic Partner Domestic Partner Phone Father Name Chipper Operator Status 07/11/20 24 1 A Positive Zachariah pher OPEN Fetus Data First Name Last Name Admitted to NICU Weight (g) Sex Living Outcome Pediatric Complications Fetus ID Race Codes Race Delivery Type [id number] Problems Problem Notes Ursodiol 300 mgBile acids 5 rpt 217 increased to 8 RPT 3/3 symptomatic Problem Name Start Date End Date Resolution Snomed Code Not e Placenta circumvallata 0921635 32wk growth us Blood glucose outside reference range 002213315 decline 3hr gtt h/o GDM checking bs Cholestasis of 12/27/2024 870751961 ursodiol 300mg BID, testing , 37wk delivery Maternal history of gestational diabetes 733270848 Nilay Calculation Initial Nilay Date Initial Exam Date Initial Exam Provider Initial Ultrasound Date Last Menstrual Period Date Ultra Sound Weeks Gestation 07/11/2024 06/13/2024 04/08/2024 8 Eighteen To Twenty Week Nilay Update Ultra Sound Date Fundal Height At Umbil Quickening Date Ultra Sound Latest Weeks Gestation Final Nilay Confirmed By Final Nilay Confirmed Date Final Nilay Date Ultra Sound Latest Days Gestation 0 [email or web address] 07/11/2024 01/23/20 25 0 Pre-rosalind Flowsheet Flowsheet Date 07/11/2024 Ramachandran Score Blood Edema Fundus Height Fundus Units Glucose Ketones Leukocytes Nitrite Labor Signs Protein Cervic Dilation Cervic Effacement Cervic Station Type Weight in lbs Pre/Post Dialysis Refused Weight 125.615035838276 BP Diastolic BP Location Tested BP Systolic BP Type 76 L arm 129 sitting Fetus Heart Rate Present A 144 Fetus Movement Comments this patient is a 29-year-ol d multiparous female at 12 weeks' gestation who presents for initial care. She has a history of term vaginal births. Her medical, surgical, obstetric history is unremarkable. She is vaccinated. She was given precautions recommendations for . We talked about vaccines in . Talked about care in detail. She is having genetic testing. She had a normal 12 week ultrasound. To begin routine care. Flowsheet Date 08/08/2024 Ramachandran Score Blood Edema Fundus Height Fundus Units Glucose Ketones Leukocytes Nitrite Labor Signs Protein Cervic Dilation Cervic Effacement Cervic Station Type Weight in lbs Pre/Post Dialysis Refused 130.508035499739 BP Diastolic BP Location Tested BP Systolic BP Type 69 L arm 112 sitting Fetus Heart Rate Present A 145 Fetus Movement A Yes Comments no complaints, no problems, routine care, no contractions, no vaginal bleeding, no loss of fluid, no cramping Flowsheet Date 09/05/2024 Ramachandran Score Blood Edema Fundus Height Fundus Units Glucose Ketones Leukocytes Nitrite Labor Signs Protein Cervic Dilation Cervic Effacement Cervic Station Type Weight in lbs Pre/Post Dialysis Refused BP Diastolic BP Location Tested BP Systolic BP Type Fetus Heart Rate Present Fetus Movement Comments Flowsheet Date 09/05/2024 Ramachandran Score Blood Edema Fundus Height Fundus Units Glucose Ketones Leukocytes Nitrite Labor Signs Protein Cervic Dilation Cervic Effacement Cervic Station 145 cm Type Weight in lbs Pre/Post Dialysis Refused 138.085726825337 BP Diastolic BP Location Tested BP Systolic BP Type 83 L arm 129 sitting Fetus Heart Rate Present Fetus Movement A Yes Comments no complaints, no problems, routine care, no contractions, no vaginal bleeding, no loss of fluid, no cramping Flowsheet Date 10/10/2024 Ramachandran Score Blood Edema Fundus Height Fundus Units Glucose Ketones Leukocytes Nitrite Labor Signs Protein Cervic Dilation Cervic Effacement Cervic Station Type Weight in lbs Pre/Post Dialysis Refused 144.298804324295 BP Diastolic BP Location Tested BP Systolic BP Type 74 L arm 138 sitting Fetus Heart Rate Present A 145w Fetus Movement A Yes Comments no complaints, no problems, routine care, no contractions, no vaginal bleeding, no loss of fluid, no cramping Flowsheet Date 10/31/2024 Ramachandran Score Blood Edema Fundus Height Fundus Units Glucose Ketones Leukocytes Nitrite Labor Signs Protein Cervic Dilation Cervic Effacement Cervic Station 28 cm Type Weight in lbs Pre/Post Dialysis Refused Weight 148.037271624843 BP Diastolic BP Location Tested BP Systolic BP Type 85 L arm 131 sitting Fetus Heart Rate Present A 136 Present Fetus Movement A Yes Comments Pruritus of the palms and so les her feet. Reports headaches. Patient to be treated with ursodiol and Fioricet. Talked about medications. We discussed cholestasis in detail Flowsheet Date 11/14/2024 Ramachandran Score Blood Edema Fundus Height Fundus Units Glucose Ketones Leukocytes Nitrite Labor Signs Protein Cervic Dilation Cervic Effacement Cervic Station 33 cm Type Weight in lbs Pre/Post Dialysis Refused 153.255588482371 BP Diastolic BP Location Tested BP Systolic BP Type 81 L arm 123 sitting Fetus Heart Rate Present A 138 Present Fetus Movement A Yes Comments size bigger than dates. Flowsheet Date 11/28/2024 Ramachandran Score Blood Edema Fundus Height Fundus Units Glucose Ketones Leukocytes Nitrite Labor Signs Protein Cervic Dilation Cervic Effacement Cervic Station Type Weight in lbs Pre/Post Dialysis Refused BP Diastolic BP Location Tested BP Systolic BP Type Fetus Heart Rate Present Fetus Movement Comments Flowsheet Date 11/28/2024 Ramachandran Score Blood Edema Fundus Height Fundus Units Glucose Ketones Leukocytes Nitrite Labor Signs Protein Cervic Dilation Cervic Effacement Cervic Station neg none 0cm 50% -3 Type Weight in lbs Pre/Post Dialysis Refused Weight 147.356584429457 BP Diastolic BP Location Tested BP Systolic BP Type 73 L arm 125 sitting Fetus Heart Rate Present A Present Fetus Movement A Yes Comments Patient c/o [place], s tated Thursday suddenly felt sick, kept throwing up and had really bad contractions. Concerned for PTL. Contractions now improved. SVE per patietn request, closed internally, ~3cm externally. Good movement. EFW 40%, normal EARLE. Blood sugar log reviewed, all overall wnl. Discussed preadmission. RTC 2 weeks. Flowsheet Date 12/12/2024 Ramachandran Score Blood Edema Fundus Height Fundus Units Glucose Ketones Leukocytes Nitrite Labor Signs Protein Cervic Dilation Cervic Effacement Cervic Station Type Weight in lbs Pre/Post Dialysis Refused 152.881186031102 BP Diastolic BP Location Tested BP Systolic BP Type 79 L arm 128 sitting Fetus Heart Rate Present A 150 Present Fetus Movement A Yes Comments no complaints, no problems, routine care, no contractions, no vaginal bleeding, no loss of fluid, no crampingblood sugars are normal Flowsheet Date 12/26/2024 Ramachandran Score Blood Edema Fundus Height Fundus Units Glucose Ketones Leukocytes Nitrite Labor Signs Protein Cervic Dilation Cervic Effacement Cervic Station neg none 36 cm 1cm Type Weight in lbs Pre/Post Dialysis Refused Weight 157.885605255979 BP Diastolic BP Location Tested BP Systolic BP Type 69 117 Fetus Heart Rate Present Fetus Movement A Yes Comments presenting part is very high in the pelvis, patient fell on her butt 3 days ago. Possible cholestasis, itching and borderline total bile Acids. To start testing. Flowsheet Date 12/26/2024 Ramachandran Score Blood Edema Fundus Height Fundus Units Glucose Ketones Leukocytes Nitrite Labor Signs Protein Cervic Dilation Cervic Effacement Cervic Station Type Weight in lbs Pre/Post Dialysis Refused Weight 157.460832506051 BP Diastolic BP Location Tested BP Systolic BP Type 69 117 Fetus Heart Rate Present Fetus Movement Comments Flowsheet Date 12/26/2024 Ramachandran Score Blood Edema Fundus Height Fundus Units Glucose Ketones Leukocytes Nitrite Labor Signs Protein Cervic Dilation Cervic Effacement Cervic Station Type Weight in lbs Pre/Post Dialysis Refused BP Diastolic BP Location Tested BP Systolic BP Type Fetus Heart Rate Present Fetus Movement Comments Flowsheet Date 12/30/2024 Ramachandran Score Blood Edema Fundus Height Fundus Units Glucose Ketones Leukocytes Nitrite Labor Signs Protein Cervic Dilation Cervic Effacement Cervic Station Type Weight in lbs Pre/Post Dialysis Refused Weight 157.318876100887 BP Diastolic BP Location Tested BP Systolic BP Type 67 L arm 114 sitting Fetus Heart Rate Present Fetus Movement Comments Menstrual History Last Menstrual Date Menses Monthly On Bcp Conception Prior Menses Frequency Hcg Plus Date Menarche Onset Age 0704/08/2024 Delivery Information Delivery Date Delivery Type Labor Anesthesia Weeks Gestation Incision Type Labor Labor Length Hrs Delivered By Post Complications Tubal Sterilization Discharge Date Comments Discharge Information Feeding Method Contraceptive Method Maternal HG B and HCT Levels Ob Episode Information Episode Created Date Number of Fetuses Patient Bloodtype Patient rh Status Prepregnancy Weight lbs Domestic Partner Domestic Partner Phone Father Name Chipper Operator Status 06/13/20 24 1 CLOSED Fetus Data First Name Last Name Admitted to NICU Weight (g) Sex Living Outcome Pediatric Complications Fetus ID Race Codes Race Delivery Type , [place] ous [id number] Nilay Calculation Initial Nilay Date Initial Exam Date Initial Exam Provider Initial Ultrasound Date Last Menstrual Period Date Ultra Sound Weeks Gestation 0 Eighteen To Twenty Week Nilay Update Ultra Sound Date Fundal Height At Umbil Quickening Date Ultra Sound Latest Weeks Gestation Final Nilay Confirmed By Final Nilay Confirmed Date Final Nilay Date Ultra Sound Latest Days Gestation 0 0 Menstrual History Last Menstrual Date Menses Monthly On Bcp Conception Prior Menses Frequency Hcg Plus Date Menarche Onset Age Delivery Information Delivery Date Delivery Type Labor Anesthesia Weeks Gestation Incision Type Labor Labor Length Hrs Delivered By Post Complications Tubal Sterilization Discharge Date Comments Discharge Information Feeding Method Contraceptive Method Maternal HG B and HCT Levels Ob Episode Information Episode Created Date Number of Fetuses Patient Bloodtype Patient rh Status Prepregnancy Weight lbs Domestic Partner Domestic Partner Phone Father Name Chipper Operator Status 06/13/20 24 1 CLOSED Fetus Data First Name Last Name Admitted to NICU Weight (g) Sex Living Outcome Pediatric Complications Fetus ID Race Codes Race Delivery Type 3883.65 4704 M Full Term [id number] Vaginal Delivery Nilay Calculation Initial Nilay Date Initial Exam Date Initial Exam Provider Initial Ultrasound Date Last Menstrual Period Date Ultra Sound Weeks Gestation 0 Eighteen To Twenty Week Nilya Update Ultra Sound Date Fundal Height At Umbil Quickening Date Ultra Sound Latest Weeks Gestation Final Nilay Confirmed By Final Nilay Confirmed Date Final Nilay Date Ultra Sound Latest Days Gestation 0 0 Menstrual History Last Menstrual Date Menses Monthly On Bcp Conception Prior Menses Frequency Hcg Plus Date Menarche Onset Age Delivery Information Delivery Date Delivery Type Labor Anesthesia Weeks Gestation Incision Type Labor Labor Length Hrs Delivered By Post Complications Tubal Sterilization Discharge Date Comments 6 39 Discharge Information Feeding Method Contraceptive Method Maternal HG B and HCT Levels Ob Episode Information Episode Created Date Number of Fetuses Patient Bloodtype Patient rh Status Prepregnancy Weight lbs Domestic Partner Domestic Partner Phone Father Name Chipper Operator Status 06/13/20 24 1 CLOSED Fetus Data First Name Last Name Admitted to NICU Weight (g) Sex Living Outcome Pediatric Complications Fetus ID Race Codes Race Delivery Type [id number] M Full Term [id number] Vaginal Delivery Nilay Calculation Initial Nilay Date Initial Exam Date Initial Exam Provider Initial Ultrasound Date Last Menstrual Period Date Ultra Sound Weeks Gestation 0 Eighteen To Twenty Week Nilay Update Ultra Sound Date Fundal Height At Umbil Quickening Date Ultra Sound Latest Weeks Gestation Final Nilay Confirmed By Final Nilay Confirmed Date Final Nilay Date Ultra Sound Latest Days Gestation 0 0 Menstrual History Last Menstrual Date Menses Monthly On Bcp Conception Prior Menses Frequency Hcg Plus Date Menarche Onset Age Delivery Information Delivery Date Delivery Type Labor Anesthesia Weeks Gestation Incision Type Labor Labor Length Hrs Delivered By Post Complications Tubal Sterilization Discharge Date Comments 2 Discharge Information Feeding Method Contraceptive Method Maternal HG B and HCT Levels
--- OUTSIDE RECORDS SUMMARY | 2025-01-02 06:15 | XMS_ITS | Encounter Summary ---
Author Organization [facility] - [facility] Address [address] [place] [address] Care Team Providers Care Trapeze Performer Name Role Phone Antonella Cowart MD Primary Care Provider Encounter Details Date Type Department Care Team (Late st Contact Info) Description 12/29/[address] [facility] Patient Accounts [address] [place] [address] [facility] Action Required Social History Tobacco Use Types Packs/Day Years [...] on file Sexual Orientation Not on file documented as of this encounter Functional Status * RETIRED Are you deaf or do you have serious difficulty hearing Answer Date of Assessment Author Status No 05/24/2022 11:09 AM CDT Acti ve * RETIRED Are you blind or do you have serious difficulty seeing, even when wearing glasses? Answer Date of Assessment Author Status No 05/24/2022 11:09 AM CDT Acti ve * Do you have serious difficulty walking or climbing stairs? Answer Date of Assessment Author Status No 05/24/2022 11:09 AM CDT Annabel Jones R N Active * Do you have difficulty dressing or bathing? Answer Date of Assessment Author Status No 05/24/2022 11:09 AM Annabel Mendiola R N Active * Because of a physical, mental, or emotional condition, do you have difficulty doing errands alone such as visiting a doctor's office or shopping? Answer Date of Assessment Author Status No 05/24/2022 11:09 AM Annabel Mendiola R N Active documented as of this encounter Mental Status * Because of a physical, mental, or emotional condition, do you have serious difficulty concentrating, remembering, or making decisions? Answer Entry Date Author Status No 05/24/2022 11:09 AM Annabel Mendiola R N Active documented in this encounter Plan of Treatment Not on file documented as of this encounter Visit Diagnoses Not on filedocumented in this encounter Care Teams Trapeze Performer Relationship Specialty Start Date End Date Antonella Cowart MD PCP - General OBGYN 04/26/19 documented as of this encounter
[2025-01-02 06:56] LABS: Basophils Percent Auto 0.3 % (0.2-1.2); Eosinophils Absolute Auto 0.1 K/mm3 (0-0.3); Eosinophils Percent Auto 1.5 % (0-4.4); Hematocrit 28.8 % (37.0-47.0); Hemoglobin 8.6 g/dL (12.0-15.0); Immature Granulocyte Absolute 0.18 K/mm3 (0.00-0.031); Immature Granulocyte Percent A 1.9 % (0-0.5); Lymphocytes Absolute Auto 1.82 K/mm3 (0.9-3.2); Lymphocytes Percent Auto 19.4 % (18.3-44.2); Mean Corpuscular HGB Conc 29.9 g/dl (32-36); Mean Corpuscular Hemoglobin 23.3 pg (26-34); Mean Platelet Volume 10.6 fl (7.4-10.4); Monocytes Absolute Auto 0.7 K/mm3 (0.1-0.6); Monocytes Percent Auto 7.7 % (2.6-8.5); Neutrophils Absolute Auto 6.5 K/mm3 (1.3-6.7); Neutrophils Percent Auto 69.2 % (45.5-73.1); Nucleated Red Blood Cells Perc 0.2 % (0.0-0.2); Platelet Count Result 158 k/mm3 (150-375); Red Blood Count 3.69 M/mm3 (4.2-5.4); Red Cell Distribution Width 16.1 % (11.5-14.5); White Blood Count 9.4 K/mm3 (4.5-10.0)
[2025-01-02] MEDS: LACTATED RINGERS 1,000 ML 125 ML IV CONT (07:14)
[2025-01-02] MEDS: OXYTOCIN 30 UNITS/NS 500 ML 30 UNITS/500 ML BAG IV CONT (07:15)
--- NOTE | 2025-01-02 07:18 | LDADM ---
This patient, Hanna Bright, was admitted to Labor/Delivery/Recovery 103 on 01/02/25 at 06:09. Plans for labor, pain management and were discussed with patient. Patient/family oriented to hospital policies and general routines including ID bracelet, bed and alarms, visiting hours, pain management, procedures, bathroom and other care routines, personal items, smoking policy, room service/diet and guest tray routines, infant security routines, and visiting hours. Patient/Family are encouraged to report perceived risks to care and to ask questions if they do not understand what they are told or what they should do. See OBIX for further documentation.
[2025-01-02 07:19] LABS: Anisocytosis 1+; Microcytosis 1+ (NORMAL)
[2025-01-02 07:20] LABS: Platelet Estimate Adequate (Adequate); Schistocytes None Seen
[2025-01-02 07:36] LABS: Syphilis IgG/IgM Antibody Negative (Negative)
[2025-01-02 07:49] LABS: HIV 1/2 Ab P24 Ag Result Negative (Negative)
--- NOTE | 2025-01-02 08:37 | WPDHPUPDATE1 ---
History and Physical Update Update Date/Time: 01/02/25 08:37 29-year-old multiparous female at 37 weeks gestation presents for induction of labor for cholestasis of . Artificial rupture membranes was performed-clear fluid-3 cm/30%/-3. Reassuring status. Active management of labor with Pitocin. History and Physical has been reviewed, including an updated exam of the patient. There are NO changes in the patient's condition. Risks, benefits, and alternatives have been discussed and questions answered. Patient agrees to proceed with procedure.
[2025-01-02 10:19] LABS: Glucose Point of Care 76 mg/dl (65-105)
[2025-01-02 11:36] LABS: Glucose Point of Care 110 mg/dl (65-105)
--- NOTE | 2025-01-02 12:39 | PM.OBPNVD ---
OB - PN: Subj Subjective Date/time seen: 01/02/25 12:39 Artificial rupture membranes was performed, copious clear fluid. 5 cm/50%/-2 OB - PN: Obj Data Labs 01/02/25 06:47 Labs: Laboratory Results - last 24 hr 01/02/25 01/02/25 01/02/25 06:47 10:16 11:32 WBC 9.4 RBC 3.69 L Hgb 8.6 L Hct 28.8 L MCV 78.0 L MCH 23.3 L MCHC 29.9 L RDW 16.1 H Plt Count 158 MPV 10.6 H Immature Gran % (Auto) 1.9 H Neut % (Auto) 69.2 Lymph % (Auto) 19.4 [place] % (Auto) 7.7 Eos % (Auto) 1.5 Baso % (Auto) 0.3 Lymph # (Auto) 1.82 [place] # (Auto) 0.7 H Eos # (Auto) 0.1 Baso # (Auto) 0.0 Abs Immat Gran (auto) 0.18 H Absolute Neuts (auto) 6.5 Absolute Nucleated RBC 0.020 H Band Neutrophils % Not Reportable Nucleated RBC % 0.2 Platelet Estimate Adequate Anisocytosis 1+ Microcytosis 1+ Schistocytes None seen POC Capillary Glucose 76 110 H Syphilis IgG/IgM Ab Negative HIV 1&2 Ab/P24 Ag 4thGn Negative Blood Type A Positive Antibody Screen Negative OB - PN A/P Time Spent With Patient Time: Total time spent is greater than 50% in coordination of care (as documented) at patient's floor/unit and/or counseling patient:
[2025-01-02] MEDS: LACTATED RINGERS 1,000 ML 999 ML IV CONT ×2 (12:47→14:10)
[2025-01-02 16:07] LABS: Glucose Point of Care 62 mg/dl (65-105)
[2025-01-02 16:07] LABS: Glucose Point of Care 57 mg/dl (65-105)
[2025-01-02 16:56] LABS: Glucose Point of Care 111 mg/dl (65-105)
--- NOTE | 2025-01-02 17:52 | PM.OBPRVD ---
OB - Vaginal Delivery Note Procedure Delivery date: 01/02/25 Events: Other (Cholestasis of ) Induction method: AROM and Per Pitocin Protocol Delivery monitor: External FHT and External Uterine Route of delivery: Episiotomy description: None Laceration Description: None Quantitative Blood Loss (ml): 200 Anesthesia type: Epidural Disposition: Floor Complications: No immediate complications
[2025-01-03 00:30] VITALS: BP 101/77; PULSE 90; RESP 18; TEMP 36.9; O2SAT 100
[2025-01-03 04:00] VITALS: BP 100/68; PULSE 62; RESP 16; TEMP 36.6; O2SAT 98
[2025-01-03 06:01] LABS: Hematocrit 31.2 % (37.0-47.0); Hemoglobin 9.4 g/dL (12.0-15.0)
[2025-01-03 07:40] VITALS: BP 117/72; PULSE 73; RESP 16; TEMP 36.7; O2SAT 100
[2025-01-03] MEDS: DOCUSATE SODIUM 100 MG CAPSULE PO ×2 (07:47→17:39)
[2025-01-03] MEDS: POLYSACCHARIDE IRON COMPLEX 150 MG CAPSULE PO ×2 (07:48→17:39)
[2025-01-03] MEDS: MULTIVIT/MIN/PREN/FOL AC/IRON TABLET 1 TAB PO (07:48)
--- NOTE | 2025-01-03 10:32 | WPDANLDPN2 ---
Anes-Prog Note L&D Date/Time: 01/03/25 10:32 Comfortable throughout: labor and delivery Neuraxial method: epidural Epidural/Spinal procedure site: clean & non-tender Neuro status: Neuro function grossly intact. Cardiovascular status: normal Respiratory status: normal Airway patency: baseline Mental status: baseline Post-Op hydration status: normal Vital Signs: Last Vital Signs Temp 98.1 F 01/03/25 07:40 Pulse 73 01/03/25 07:40 Resp 16 01/03/25 07:40 BP 117/72 01/03/25 07:40 Pulse Ox 100 01/03/25 07:40 O2 Del Method Room Air 01/02/25 20:30 Pain score (VAS): 0/10 I/O: Intake & Output 01/02/25 01/03/25 01/03/25 23:59 07:59 15:59 Output Total 900 Balance -900 Post-procedural complaints: none Patient feedback: Patient satisfied with anesthetic care.
--- NOTE | 2025-01-03 10:33 | WPDANLDPN2 ---
Anes-Prog Note L&D Date/Time: 01/03/25 10:33 Comfortable throughout: labor and delivery Neuraxial method: epidural Epidural/Spinal procedure site: clean & non-tender Neuro status: Neuro function grossly intact. Cardiovascular status: normal Respiratory status: normal Airway patency: baseline Mental status: baseline Post-Op hydration status: normal Vital Signs: Last Vital Signs Temp 98.1 F 01/03/25 07:40 Pulse 73 01/03/25 07:40 Resp 16 01/03/25 07:40 BP 117/72 01/03/25 07:40 Pulse Ox 100 01/03/25 07:40 O2 Del Method Room Air 01/02/25 20:30 Pain score (VAS): 0/10 I/O: Intake & Output 01/02/25 01/03/25 01/03/25 23:59 07:59 15:59 Output Total 900 Balance -900 Post-procedural complaints: none Patient feedback: Patient satisfied with anesthetic care.
[2025-01-03 12:05] VITALS: BP 103/68; PULSE 68; RESP 14; TEMP 36.6; O2SAT 98
--- NOTE | 2025-01-03 14:23 | P.PNOB_ITS ---
OB - PN: Subj Subjective Date/time seen: 01/03/25 14:23 Patient comments: no complaints, pain well controlled, incisional pain, tolerating diet and flatus present OB - PN: Obj Data Labs 01/03/25 05:24 Labs: Laboratory Results - last 24 hr 01/02/25 01/02/25 01/02/25 15:34 16:04 16:54 Hgb Hct POC Capillary Glucose 62 L 57 L* 111 H 01/03/25 05:24 Hgb 9.4 L Hct 31.2 L POC Capillary Glucose OB - PN A/P Plan day: 1 Plan: routine care Comments: No problems, routine care Time Spent With Patient Time: Total time spent is greater than 50% in coordination of care (as documented) at patient's floor/unit and/or counseling patient: Exam 2 Const: General: comfortable, no acute distress and alert Resp: Effort & Inspection: normal respiratory effort Auscultation: no crackles, no rales and no rhonchi Cardio: Rate: regular rate Heart sounds: no click, no murmurs and no rubs GI: Inspection: non-distended GI Palp: No Tenderness to palpation present (GI) Auscultation: normal bowel sounds Other: Incision - CDI Extrem: General: normal to inspection, no pedal edema and no calf tenderness
--- NOTE | 2025-01-03 14:24 | PM.OBDSVD ---
DS: Admitting Diagnosis Discharge Date 01/03/25 Admitting Diagnosis term DS: Discharge Diagnosis Discharge Diagnosis (1) Post term , delivered: Code(s): O48.0 - Post-term Status: Acute OB - DS: Summary OB Procedures : None OB Procedures Intrapartum: Spontaneous Vag Delivery OB Procedures: : None Peripartum Data Laceration Description: None Episiotomy description: None Time Spent with Patient Time attestation: Total time spent providing and/or coordinating discharge services: DS: Data Data Completed and Pending Labs on day of discharge: Labs from last 24 hours 01/03/25 01/02/25 01/02/25 05:24 16:54 16:04 Hgb 9.4 L Hct 31.2 L POC Capillary Glucose 111 H 57 L* 01/02/25 15:34 Hgb Hct POC Capillary Glucose 62 L Discharge Plan Discharge Discharging Clinician: Nahun Castillo Patient Disposition: Home Activity: pelvic rest Diet: regular Patient Instructions: Antibiotic Form Patient Language: Estonian Stand Alone Forms: General Discharge Information Follow-up/Referrals: Nahun Castillo MD [Physician] - Discharge Medications: Continued ursodiol 300 mg capsule 300 mg PO BID PNV [id number] fumarate-FA [] 28 mg iron- 800 mcg tablet 1 tablet PO DAILY Date of admission: 01/02/25 06:09 Primary Care Provider: UNKNOWN,DOCTOR Admitting Provider: Nahun Castillo Attending physician on admission: Nahun Castillo Condition: Stable
[2025-01-05 11:14] VITALS: BP 120/75; PULSE 82; RESP 18; TEMP 36.8; O2SAT 100
== END 2025-01-03 20:05 | disposition home or self-care (01) | DRG 807 ==
LOC: ANHLDR 06:12 → ANHOB2 21:27
PROVIDERS: Admitting Provider Obstetrics & Gynecology; Visit Provider Obstetrics & Gynecology
DX: O26.643 Intrahepatic cholestasis of pregnancy, third trimester (principal); Z37.0 Single live birth; Z3A.37 37 weeks gestation of pregnancy
CPT/HCPCS: 36415; 82948; 85014; 85018; 85025; 86593; 86703; 86850; 86900; 86901; A9270; G0432; J2590; J2795; J7120